=== PATIENT | female | born 1985 | race Caucasian/White ===

== ENCOUNTER → 2020-12-09 | Outpatient (REF) | payer OTHER ==
[2020-12-09 12:56] LABS: ALBUMIN 4.4 GM/DL (3.2-5.2); ALT/SGPT 27 U/L (12-78); BILIRUBIN,TOTAL 0.6 MG/DL (0.2-1.0); BLOOD UREA NITROGEN 8 MG/DL (7-18); CALCIUM LEVEL 9.6 MG/DL (8.5-10.1); CARBON DIOXIDE LEVEL 30 MEQ/L (21-32); CHLORIDE LEVEL 105 MEQ/L (98-107); CHOLESTEROL LEVEL 213 MG/DL (<200); CHOLESTEROL RISK RATIO 4.733 (<5); CREATININE FOR GFR 0.91 MG/DL (0.55-1.30); FREE T4 1.15 NG/DL (0.76-1.46); GLOMERULAR FILTRATION RATE > 60.0 (>60); GLUCOSE, FASTING 103 MG/DL (70-100); HDL CHOLESTEROL 45 MG/DL (>40); LDL CHOLESTEROL 147 MG/DL (<100); NON-HDL-C 168 MG/DL; POTASSIUM SERUM 4.1 MEQ/L (3.5-5.1); SODIUM LEVEL 142 MEQ/L (136-145); THYROID STIMULATING HORMONE 0.797 uIU/ML (0.358-3.740); TOTAL PROTEIN 7.3 GM/DL (6.4-8.2); TRIGLYCERIDES LEVEL 106 MG/DL (<150)
[2020-12-09 13:26] LABS: HEMOGLOBIN A1c 5.6 %
== END ==
LOC: M SFHCCLAY 08:25
PROVIDERS: ATTEND Nurse Practitioner Family
DX: E66.9 Obesity, unspecified (principal); Z13.1 Encounter for screening for diabetes mellitus

== ENCOUNTER → 2021-02-16 | Outpatient (REF) | payer OTHER ==
[2021-02-16 16:10] LABS: CHLAMYDIA DNA AMPLIFICATION NEGATIVE (NEGATIVE); GC DNA AMPLIFICATION NEGATIVE (NEGATIVE)
== END ==
LOC: M SFHCWAGY 12:50
PROVIDERS: ATTEND Nurse Practitioner Women's Health
DX: Z12.4 Encounter for screening for malignant neoplasm of cervix (principal)

== ENCOUNTER → 2023-12-08 | Outpatient (CLI) | payer BC | LOC: M RAD 08:23 | PROVIDERS: ATTEND Nurse Practitioner Family | DX: R29.890 Loss of height (principal); M54.16 Radiculopathy, lumbar region ==

== ENCOUNTER → 2024-01-09 | Outpatient (REF) | payer BC ==
[2024-01-09 18:17] LABS: HEMOGLOBIN A1c 5.8 % (4.0-6.0)
[2024-01-09 18:28] LABS: ALBUMIN 4.2 G/DL (3.2-5.2); ALKALINE PHOSPHATASE 76 U/L (46-116); ALT/SGPT 52 U/L (7.0-40); AST/SGOT 11 U/L (<34); BILIRUBIN,TOTAL 0.6 MG/DL (0.3-1.2); BLOOD UREA NITROGEN 14 MG/DL (9-23); CALCIUM LEVEL 8.9 MG/DL (8.5-10.1); CARBON DIOXIDE LEVEL 31 MMOL/L (20-31); CHLORIDE LEVEL 105 MMOL/L (98-107); CHOLESTEROL LEVEL 223 MG/DL (<200); CREATININE FOR GFR 0.74 MG/DL (0.55-1.30); GLOMERULAR FILTRATION RATE > 60.0 (>60); GLUCOSE, FASTING 84 MG/DL (60-100); HDL CHOLESTEROL 46.4 MG/DL (>40); LDL CHOLESTEROL 151.2 MG/DL (<100); NON-HDL-C 176.6 MG/DL; SODIUM LEVEL 139 MMOL/L (136-145); THYROID STIMULATING HORMONE 1.246 uIU/ML (0.55-4.78); TOTAL PROTEIN 7.1 G/DL (5.7-8.2); TRIGLYCERIDES LEVEL 127 MG/DL (<150)
[2024-01-09 18:29] LABS: FREE T4 1.24 NG/DL (0.89-1.76)
== END ==
LOC: M SFHCCLAY 10:32
PROVIDERS: ATTEND Nurse Practitioner Family
DX: E66.9 Obesity, unspecified (principal); Z13.1 Encounter for screening for diabetes mellitus

== ENCOUNTER → 2024-03-07 | Outpatient (CLI) | payer BC | LOC: M RAD 12:14 | PROVIDERS: ATTEND Nurse Practitioner Family | DX: N28.1 Cyst of kidney, acquired (principal) ==

== ENCOUNTER → 2024-04-22 | Outpatient (REF) | payer BC ==
[2024-04-22 12:53] LABS: ALKALINE PHOSPHATASE 63 U/L (46-116); ALT/SGPT 23 U/L (7.0-40); AST/SGOT < 8 U/L (<34); BILIRUBIN,TOTAL 0.6 MG/DL (0.3-1.2); BLOOD UREA NITROGEN 11 MG/DL (9-23); CALCIUM LEVEL 9.1 MG/DL (8.5-10.1); CARBON DIOXIDE LEVEL 29 MMOL/L (20-31); CHLORIDE LEVEL 106 MMOL/L (98-107); CREATININE FOR GFR 0.79 MG/DL (0.55-1.30); GLOMERULAR FILTRATION RATE > 60.0 (>60); GLUCOSE, FASTING 105 MG/DL (60-100); POTASSIUM SERUM 4.2 MMOL/L (3.5-5.1); SODIUM LEVEL 139 MMOL/L (136-145); TOTAL PROTEIN 6.5 G/DL (5.7-8.2)
[2024-04-22 13:18] LABS: HEMOGLOBIN A1c 5.6 % (4.0-6.0)
== END ==
LOC: M SFHCCLAY 07:50
PROVIDERS: ATTEND Nurse Practitioner Family
DX: R73.03 Prediabetes (principal)

== ENCOUNTER → 2024-09-19 | Outpatient (CLI) | payer BC | LOC: M RAD 15:17 | PROVIDERS: ATTEND Nurse Practitioner Family | DX: N28.1 Cyst of kidney, acquired (principal) ==

== ENCOUNTER 2025-03-26 07:22 | Day surgery (SDC) | payer BC ==
[~2025-03-26] VITALS: Ht 177.8 cm; Wt 92.4 kg
[~2025-03-26 07:22] MED LIST: LISD30CA PO
[2025-03-26] MEDS ORDERED: propofoL 500 MG/50 ML VIAL As Ordered ONE (08:30)
[2025-03-26] MEDS ORDERED: LIDOCAINE 2% 100MG/5ML SDV (FOR ANES.) As Ordered ONE (08:30)
[2025-03-26 08:44] VITALS: TEMP 97.3
[2025-03-26 09:03] VITALS: BP 115/62; O2SAT 100
== END 2025-03-26 09:09 | disposition home or self-care (01) ==
LOC: M OPP 07:22
PROVIDERS: ATTEND Surgery
DX: Z12.11 Encounter for screening for malignant neoplasm of colon (principal); Z12.12 Encounter for screening for malignant neoplasm of rectum; K63.5 Polyp of colon; F90.9 Attention-deficit hyperactivity disorder, unspecified type; Z79.899 Other long term (current) drug therapy